=== PATIENT | female | born 1995 | race Caucasian/White ===

== ENCOUNTER → 2019-12-15 | Outpatient (CLI) | payer OTHER | LOC: RAD 10:26 | PROVIDERS: ATTEND Otolaryngology | DX: R06.09 Other forms of dyspnea (principal) | CPT/HCPCS: 70486 ==

== ENCOUNTER 2019-12-31 08:43 | Day surgery (SDC) | payer BC, OTHER ==
[~2019-12-31 08:43] MED LIST: BACITRACIN ZINC OINTMENT 15 GM ONE; BALANCED SALT IRRIG SOLN COMB2 15 ML BOTTLE ONE; BUPIVACAINE HCL 0.5%/EPI 1:200000 INJ 1.8 ML CARTRIDGE ONE; CEFAZOLIN 1 GM/D5W RTU 1 GM/50 ML RTUPB IV PRN; DEXAMETHASONE SOD PHOS INJ 10 MG/1 ML VIAL ONE; DEXMEDETOMIDINE INJ 80 MCG/20 ML VIAL IV ONE; EPHEDRINE SULFATE INJ 50 MG/1 ML AMPULE ONE; FAMOTIDINE INJ/PF 20 MG/2 ML SDV IV ONE; FENTANYL CITRATE INJ/PF 100 MCG/2 ML AMPUL ONE; GLYCOPYRROLATE INJ 0.4 MG/2 ML VIAL ONE; LIDOCAINE 2% INJ-PF (100 MG/5 ML) SYRINGE ONE; MIDAZOLAM 2 MG/2 ML INJ ONE; MINERAL OIL (STERILE) 10 ML VIAL ONE; MORPHINE SULFATE 10 MG/ML INJ ONE; ONDANSETRON HCL INJ/PF 4 MG/2 ML SDV ONE; PROPOFOL INJ 200 MG/20 ML VIAL IV ONE; SUCCINYLCHOLINE CHLORIDE INJ 200 MG/10 ML VIAL ONE; TOBRAMYCIN SULFATE/DEXAMETH OPH OINTMENT 3.5 GM ONE
[2019-12-31] MEDS: OXYMETAZOLINE HCL 0.05% NASAL SPRAY 15 ML BOTTLE ONE ×2 (11:01→14:30)
[2019-12-31] MEDS ORDERED: BUPIVACAINE HCL 0.5%-EPI 1:200000 INJ/PF 30 ML VIAL ONE (11:56)
[2019-12-31] MEDS ORDERED: LIDOCAINE 2%/EPINEPHRINE INJ 20 ML VIAL ONE (11:56)
[2019-12-31] MEDS ORDERED: PROMETHAZINE HCL INJ 25 MG/1 ML VIAL ONE (15:40)
--- NOTE | 2020-01-07 21:51 | Operative Report ---
Operative Report-[facility] Operative Report: DATE OF OPERATION: December 31, 2019 PREOPERATIVE DIAGNOSES: 1. Nasal septal deviation, Acquired 2. Bilateral inferior turbinate hypertrophy 3. Nasal Deformities, Acquired 4. Chronic Nasal Dyspnea 5. History of nasal trauma POSTOPERATIVE DIAGNOSES: 1. Nasal septal deviation, Acquired 2. Bilateral inferior turbinate hypertrophy 3. Nasal Deformities, Acquired 4. Chronic Nasal Dyspnea 5. History of nasal trauma PROCEDURES: 1. Endonasal/closed septorhinoplasty with major septal cartilage repair and left nasal valve surgery which was treated with use of the Vivaer device. 2. Bilateral intramural inferior turbinate reductions using submucus resection techniques. SURGEON: Dr. Nathan Perez Anesthesia Staff: ELLIE Tesfaye ANESTHESIA: General endotracheal tube anesthesia/GETA DRAINS: None SPONGE COUNT: Verified NEEDLE COUNT: Verified SPECIMEN/MATERIALS FORWARD TO THE LAB: None ESTIMATED BLOOD LOSS: 30 mL TOTAL IV FLUIDS: 1500 mL COMPLICATIONS: None FINDINGS: 1. Extreme/highly severe left nasal septal deviation involving cartilage and bone along with a maxillary crest spur. 2. Nasal dorsal bony hump with irregularities, and patient with the appearance of a saddle nose deformity, but there was a stable nasal dorsal component/strut existing. 3. Bilateral inferior turbinate hypertrophy right greater than left. 4. 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 INDICATIONS: This is a 24-year-old white female patient who was seen and evaluated in the [place] otolaryngology office. The patient was referred for and she complained of a history of severe nasal trauma resulting in nasal deformit ies and chronic nasal dyspnea over the years. The patient clinically is noted to have nasal septal deviations, bilateral turbinate hypertrophy, and nasal deformities. The patient has desired to undergo nasal surgery to improve functional nasal airflow and overall quality of life. The septorhinoplasty and bilateral inferior turbinate reduction procedure/surgery, and all of the risks and complications were all discussed in detail with the patient. She voiced an understanding, agreed to proceed, and consent was obtained. DESCRIPTION OF OPERATIVE PROCEDURE: The patient was taken to the main operating room and placed on the operating room table in the supine position. Appropriate monitors were placed. Using mask and IV access general anesthesia was induced. The patient was then transorally intubated without difficulty. The table was next positioned for nasal surgery. The patient underwent a nasal examination and local anesthetic with epinephrine was administered to establish a nasal block. The patient next had two Afrin soaked neuropatties placed into each nasal passage. The patient was then prepped and draped in the usual fashion for nasal surgery. The neuropatties were removed and the patient underwent a left-sided hemitransfixion incision. There was tedious and gentle elevation of the mucoperichondrial and mucoperiosteal flaps which were thin and tenuous in nature with septal rents resulting due to the nature of the septal mucosal flaps and severity of the nasal septal bony and cartilaginous injury components consisting of severe/extreme findings as noted above. The bony cartilaginous junction was identified and divided and the most deviated portions of the bony and cartilaginous septum were removed. Findings are as noted above. The maxillary crest spur was identified, isolated, and removed with a V-gouge. There was a greater than 1.5 X 1.5 cm cartilaginous L-Strut preserved. Attention was now turned to performing bilateral inferior turbinate reductions. The turbinate bipolar wand was used to make 2 - 3 intramural passes in each inferior turbinate. At this point the turbinate microdebrider system at a setting of 1500 RPM was used to perform bilateral inferior turbinate submucus resections. This was followed by use of the [place] elevator to outfracture each inferior turbinate. Excessive/redundant mucosa at the anterior portion of the inferior turbinates was next trimmed with margins reapproximated with chromic suture. At this point attention was turned to performing the rhinoplasty portion of the case with a left extended modified marginal incision made with a #15 blade scalpel followed by dissection and elevation of the skin and soft tissue envelope over the dorsum of the nose which was in a subperichondrial and subperiosteal plane. Findings are as noted above. At this point dorsal rasp work was performed without difficulty. Septal cartilage that had been removed during the case was also utilized to place a dorsal cartilage onlay grafts which were stabilized in position with through and through 6-0 Prolene suture. At this point the [employer] handpiece was used to treat the left nasal valve deficiencies identified intraoperatively during the case. At this point there was extensive use of chromic suture and bilateral transnasal rigid surgical endoscopy for repair of the left-sided septal mucosal flap rents. There were 2 pieces of rolled Surgicel placed on the left deep to the nasal valve area. At this point the nose was thoroughly suctioned. Once complete the septum was repositioned in the midline. Cartilage which had been excised during the case was placed back between the mucosal flaps. At this point the mucosal flaps were reapproximated and the hemitransfixion incision was closed using Chromic suture. This was followed by placement of bilateral modified Merocel nasal packs 1 in each nasal passage that was secured at the caudal aspect with 4-0 Prolene suture. The nose was then cleaned and dried followed by application of Mastisol and Steri-Strips. Next, the patient was returned to the anesthesia staff and was allowed to emerge from general anesthesia. The patient was extubated in the main operating room and was then transported to the postanesthesia recovery unit in stable condition. There were no complications.
== END 2019-12-31 16:48 | disposition home or self-care (01) ==
LOC: SC 08:43
PROVIDERS: ATTEND Otolaryngology
DX: J34.2 Deviated nasal septum (principal); M95.0 Acquired deformity of nose; J34.3 Hypertrophy of nasal turbinates; J34.89 Other specified disorders of nose and nasal sinuses; R06.09 Other forms of dyspnea; J30.9 Allergic rhinitis, unspecified; Z03.818 Encounter for observation for suspected exposure to other biological agents ruled out
CPT/HCPCS: 87635; 00160; 30420; 30140; C1758; J2250; J3490 ×5; J0690; J3010; J2001; J2270; J2550; J0330; J2405; J2704; S0028; J1100; C9803; 160